=== PATIENT | male | born 1965 | race Caucasian/White ===

== ENCOUNTER 2025-01-15 06:41 | Emergency (ER) | payer OTHER, SELFPAY ==
[2025-01-15] VITALS (12 sets, daily range): BP systolic 88–114; BP diastolic 61–82; PULSE 67–149; RESP 15–20; TEMP 36.6; O2SAT 94–98; BMI 20.7
--- NOTE | 2025-01-15 06:51 | RAD_ITS ---
PROCEDURE: CHEST 1 VIEW (PORTABLE) 01/15/2025 REASON FOR EXAM: CHEST PAIN TECHNIQUE: Frontal view of the chest. COMPARISON: None available FINDINGS: The lungs appear clear. Pulmonary vascularity appears within limits. No pneumothorax or pleural effusion. Left chest single lead AICD. Coronary calcification and/or stent. The cardiac and mediastinal contours appear within limits. The visualized osseous structures appear within limits. RAD/Chest 1 View (Portable) IMPRESSION: No evidence of acute disease. Reading Location: [id number]
[2025-01-15] MEDS: dilTIAZem 25 MG/5 ML Vial 20 MG IV BOLUS (06:55)
[2025-01-15] MEDS: Lorazepam 2 MG/ML WCH Syringe 1 MG IV (06:56)
[2025-01-15] MEDS: 0.9% Normal Saline (500mL Bag) 500 ML 999 ML IV (06:58)
[2025-01-15 07:00] LABS: Absolute Lymphocyte Count 3.88 X10^3/uL (0.83-4.51); Absolute Neutrophil Count 3.7 X10^3/uL (2.0-7.7); Basophil# 0.03 X10^3/uL; Basophil% 0.3 % (0-1); Eosinophil# 0.11 X10^3/uL; Eosinophils% 1.3 % (0-5); Hematocrit 39.2 % (40-54); Hemoglobin 13.6 g/dL (13.0-16.5); Lymphocyte # 3.88 X10^3/ul (0.83-4.51); Lymphocyte % 44.6 % (19-41); Mean Corp Hgb Conc 34.7 g/dL (32-36); Mean Corpuscular Hgb 32.7 pg (27.0-32.0); Mean Corpuscular Volume 94.2 fL (80-94); Mean Platelet Vol. 8.3 fl (6.2-12.0); Monocyte# 0.96 X10^3/uL; NRBC Flagged by Analyzer 0 % (0-5); Neutrophil # 3.68 X10^3/uL (2.7-7.7); Neutrophil % 42.5 % (47-70); Platelet Count 264 K/mm3 (150-450); RBC Distribution Width CV 14.7 % (11.6-14.6); RBC Distribution Width SD 51.2 fl (35.1-43.9); Red Blood Count 4.16 M/mm3 (4.6-6.2); White Blood Count 8.7 K/mm3 (4.4-11.0)
[2025-01-15 07:22] LABS: Anion Gap 14 (5-15); BUN 11 mg/dL (4-19); BUN/Creat Ratio 10.1 RATIO (10-20); Carbon Dioxide 22.4 mmol/L (21.0-32.0); Chloride 100 mmol/L (98-108); Creatinine, Serum 1.07 mg/dL (0.70-1.20); EST Glomerular Filtration Rate 80 (>60); Estimated Creatinine Clearance 63.29 ml/min (50-250); Glucose 108 mg/dL (70-99); Magnesium 2.1 mg/dL (1.5-2.2); Potassium 3.7 mmol/L (3.3-5.1); Sodium Level 137 mmol/L (133-145)
--- NOTE | 2025-01-15 07:33 | EX.ED.DYSGE1 ---
HPI History of Present Illness Chief Complaint: Palpitations Informant: patient and EMS Narrative Narrative: Patient is a 59-year-old male with past medical history of coronary artery disease and cardiomyopathy. He states that his ejection fraction was approximately 25% and roughly 3 weeks ago he had a defibrillator placed at [facility]. He states that he has been doing well and he woke this morning as he normally would. He states he was making coffee around 6 AM and began to feel his heart was doing something funny and then he reports his defibrillator shocked him. He states that he experienced a sensation multiple times. He believes it has been 6-8 times since the initial shock around 6 AM and reports last shock he felt occurred when EMS arrived. He states he has been taking his medications as directed and overall states he was feeling normal prior to the onset of palpitations and the ICD firing. [facility] Medical History Cardiomyopathy Home Medications ?Medication ?Instructions ?Recorded ?Last Taken ?Type apixaban 5 mg tablet (Eliquis) 5 mg PO BID 01/15/25 Unknown History atorvastatin 40 mg tablet 40 mg PO DAILY 01/15/25 Unknown History clopidogrel 75 mg tablet 75 mg PO DAILY 01/15/25 Unknown History dapagliflozin propanediol 10 mg 10 mg PO DAILY 01/15/25 Unknown History tablet (Farxiga) metoprolol succinate 25 mg 25 mg PO DAILY 01/15/25 Unknown History tablet,extended release 24 hr ranolazine 500 mg tablet,extended 500 mg PO BID 01/15/25 Unknown History release,12 hr sacubitril 24 mg-valsartan 26 mg 1 tab PO BID 01/15/25 Unknown History tablet (Entresto) spironolactone 25 mg tablet 25 mg PO DAILY 01/15/25 Unknown History Allergy/AdvReac Type Severity Reaction Status Date / Time No Known Allergies Allergy Verified 01/15/25 06:43 Surgical History (Updated 01/15/25 @ 06:47 by Lisa Louise) History of cardiac defibrillator placement Social History Smoking Status: Current every day smoker tobacco type: cigarettes ROS ROS ED Constitutional Constitutional ED: Denies chills or fever(s) Eyes Eyes: Denies change in vision ENT ENT ED: Denies sore throat Cardiovascular Cardiovascular: Reports palpitations, racing heartbeat and other Details: Positive ICD firing ; Denies chest pain Respiratory/Chest Respiratory/Chest: Denies cough or dyspnea Gastrointestinal Gastrointestinal: Denies abdominal pain, diarrhea, nausea or vomiting Genitourinary Genitourinary ED: Denies dysuria Musculoskeletal Musculoskeletal: Denies myalgias Integumentary Denies rash Neurologic Neurologic: Denies headache(s) Hematologic/Lymphatic Hematologic/Lymphatic: Reports easy bleeding and easy bruising EXAM Physical Exam Const Vital Signs: 01/15/25 06:42 01/15/25 06:42 01/15/25 07:04 Temperature 98 F Temperature Source Temporal Pulse Rate 149 H 86 Respiratory Rate 18 Respiratory Effort Normal Non-Labored Blood Pressure 114/82 H Blood Pressure Mean 92 Pulse Ox 97 Oxygen Delivery Method Room Air Oxygen Flow Rate (L/min) 01/15/25 07:30 01/15/25 08:00 Temperature Temperature Source Pulse Rate 94 86 Respiratory Rate 20 H 18 Respiratory Effort Blood Pressure 95/68 98/61 Blood Pressure Mean 77 73 Pulse Ox 94 96 Oxygen Delivery Method Nasal Cannula Nasal Cannula Oxygen Flow Rate (L/min) 2 2 Positive well nourished and well developed General Appearance ED: well developed; Negative for pallor HEENT HEENT Narrative: Normocephalic atraumatic No tongue or lip swelling no oral lesions no airway edema or compromise Eyes PERRL and EOMs intact bilaterally General Eye ED: Negative for scleral icterus Neck supple and no JVD Neck Narrative: No nuchal rigidity or meningeal signs noted Chest Wall palpation of chest normal Resp normal respiratory effort Resp Narrative: Breath sounds diminished throughout with faint expiratory wheezing consistent with history of smoking but no signs of respiratory distress Cardio Rate: tachycardic and other Other Details: Irregularly irregular rhythm with tachycardic rate GI normal to inspection, nondistended, normoactive bowel sounds, non-tender, non-distended and no masses GI Narrative: No voluntary guarding or rigidity or pulsatile mass Auscultation: normoactive bowel sounds Palpation: soft Extremity normal to inspection Extremity Narrative: No asymmetric edema no pitting edema negative Homans' sign bilaterally Neuro oriented x3, CN's II-XII intact bilaterally and no sensory deficits noted Sensorium / Orientation: alert Motor Exam: strength 5/5 throughout Psych Mood & Affect: anxious Skin no rashes or lesions noted Skin Narrative: Surgical scar to the left anterior chest wall consistent with recent ICD placement that is clean dry and intact without secondary findings to suggest infection General Skin Exam: Negative for jaundice or pallor MDM MDM MDM Narrative Medical decision making narrative: Patient arrived to the ER tachycardic at approximately 150 to 170 bpm. Otherwise vitals are stable. He reported that his ICD had fired multiple times since he awoke around 6 AM and noticed palpitations. This report would indicate that the patient had ventricular tachycardia or ventricular fibrillation requiring defibrillation. There is concern this could be secondary to a displaced or migrated lead versus electrolyte abnormality. X-ray revealed no obvious signs of wire malfunction or fracture. Blood work revealed no clinically significant findings. The patient's EKG in the ER shows changes more consistent with A-fib with RVR and not V. tach or V-fib. Concern for DVT/PE is low as patient is anticoagulated on Eliquis and therefore I do not feel the need for an emergent CTA of the chest. The defibrillator was interrogated and does confirm that he received multiple episodes of defibrillation consistent with his history. With the recent defibrillator placement the case was discussed with news reel cameraman Dr. Kumar at [place]. At this time he recommends continuing a Cardizem drip at 5 mg/h and transfer to their facility for continued evaluation and treatment History & Record Review Discussion w/independent historian: EMS personnel and Patient Lab Data Attestation: I reviewed the patient's lab results. Labs: Laboratory Results - last 24 hr 01/15/25 06:50 WBC 8.7 RBC 4.16 L Hgb 13.6 Hct 39.2 L MCV 94.2 H MCH 32.7 H MCHC 34.7 RDW Std Deviation 51.2 H RDW Coeff of Hever 14.7 H Plt Count 264 MPV 8.3 Immature Gran % (Auto) 0.300 Neut % (Auto) 42.5 L Lymph % (Auto) 44.6 H [place] % (Auto) 11.0 H Eos % (Auto) 1.3 Baso % (Auto) 0.3 Absolute Neuts (auto) 3.7 Absolute Lymphs (auto) 3.88 Nucleated RBC % 0 Sodium 137 Potassium 3.7 Chloride 100 Carbon Dioxide 22.4 Anion Gap 14 BUN 11 Creatinine 1.07 Estim Creat Clear Calc 63.29 Est GFR (MDRD) Non-Af 80 BUN/Creatinine Ratio 10.1 Glucose 108 H Calcium 9.0 Magnesium 2.1 Radiography Diagnostic Testing: Clinical Impression(s) from Imaging Studies Chest X-Ray 01/15/25 06:51 IMPRESSION: No evidence of acute disease. Reading Location: [facility] Chest x-ray as interpreted by the emergency medicine physician reveals no acute infiltrate or pneumothorax or pleural effusion and it shows that the ICD wire is intact and in place Critical Care Time Critical Care Time: Yes Critical care time (excluding procedures): Discussing w/Patient &/or Family/Sheriff Sergeant, Discussing w/Consultants, Arranging Admission or Transfer, Performing Direct Patient Care at Bedside and - (Critical care time of 37 minutes) Discharge Plan Triage Chief Complaint: Palpitations ED Provider: Neil Dalal Dx/Rx/DC Orders Clinical Impression: ICD (implantable cardioverter-defibrillator) discharge, Atrial fibrillation with rapid ventricular response, Current use of intermission coordinator anticoagulation Prescriptions: No Action atorvastatin 40 mg tablet 40 mg PO DAILY clopidogrel 75 mg tablet 75 mg PO DAILY spironolactone 25 mg tablet 25 mg PO DAILY metoprolol succinate 25 mg tablet extended release 24 hr 25 mg PO DAILY ranolazine 500 mg tablet extended release 12 hr 500 mg PO BID Eliquis 5 mg tablet 5 mg PO BID dapagliflozin propanediol [Farxiga] 10 mg tablet 10 mg PO DAILY sacubitril-valsartan [Entresto] 24-26 mg tablet 1 tab PO BID Primary Care Provider: Care Physician,No Primary Referrals: Care Physician,No Primary [Primary Care Provider] - Print Language: Arabic Disposition Disposition: Acute Care Hospital Discharge Location: [facility]
--- NOTE | 2025-01-15 07:55 | EKG12_ITS ---
Test Reason : palp Blood Pressure : */* mmHG Vent. Rate : 156 BPM Atrial Rate : * BPM P-R Int : * ms QRS Dur : 96 ms QT Int : 304 ms P-R-T Axes : * -49 -7 degrees QTcB Int : 489 ms Critical Test Result: High HR Atrial fibrillation with rapid ventricular response Left axis deviation Septal infarct , age undetermined ST & T wave abnormality, consider inferior ischemia Abnormal ECG Confirmed by KRISTOPHER GASPAR, KAMERON ([id number]), food expeditor MARYSOL EDDY ([id number]) on 01/15/2025 1:30:18 PM Referred By: Rodo Confirmed By: KAMERON SUMMERS MD
--- NOTE | 2025-01-15 08:10 | PCA ---
ACCEPTED AT [facility] @ [id number].
[2025-01-15] MEDS: Diltiazem 125 MG in Dextrose 5%-Water (100mL Bag) 100 ML IV (08:26)
--- NOTE | 2025-01-15 09:53 | PCA ---
[facility] CALLED WITH B[facility] @ [address] [place] [address] HIS RIDE WILL BE HERE IN 60- 90 MINS ([id number])
== END 2025-01-15 11:44 | disposition short-term general hospital (02) ==
PROVIDERS: Emergency Provider Emergency Medicine; Visit Provider Emergency Medicine
DX: I48.91 Unspecified atrial fibrillation (principal); Z95.810 Presence of automatic (implantable) cardiac defibrillator; I25.10 Atherosclerotic heart disease of native coronary artery without angina pectoris; F17.210 Nicotine dependence, cigarettes, uncomplicated; Z79.01 Long term (current) use of anticoagulants; Z79.02 Long term (current) use of antithrombotics/antiplatelets; Z79.899 Other long term (current) drug therapy
CPT/HCPCS: 71045; 80048; 83735; 85025; 93005; 93289; 96361; 96365; 96366; 96375; 99285; A4216

== ENCOUNTER 2025-04-28 12:34 | Emergency (ER) | payer OTHER, SELFPAY ==
[2025-04-28 12:35] VITALS: BP 148/89; PULSE 104; RESP 18; TEMP 36.8; O2SAT 100; BMI 23.3
--- NOTE | 2025-04-28 12:50 | EKG12_ITS ---
Test Reason : DEFIB ISSUES Blood Pressure : */* mmHG Vent. Rate : 129 BPM Atrial Rate : * BPM P-R Int : * ms QRS Dur : 110 ms QT Int : 302 ms P-R-T Axes : * -47 89 degrees QTcB Int : 442 ms Critical Test Result: Arrhythmia Atrial fibrillation with rapid ventricular response with premature ventricular or aberrantly conducted complexes Left anterior fascicular block Nonspecific ST and T wave abnormality Abnormal ECG Confirmed by Edwar Armstrong ([id number]), editorial intern MARYSOL EDDY ([id number]) on 04/29/2025 9:38:03 AM Referred By: Confirmed By: Edwar Armstrong
--- NOTE | 2025-04-28 13:11 | ED.RN ---
missed doses of meds yesterday
[2025-04-28 13:15] LABS: Hematocrit 37.5 % (40-54); Hemoglobin 12.6 g/dL (13.0-16.5); Mean Corp Hgb Conc 33.6 g/dL (32-36); Mean Corpuscular Volume 91.0 fL (80-94); Mean Platelet Vol. 9.4 fl (6.2-12.0); Platelet Count 209 K/mm3 (150-450); RBC Distribution Width CV 13.2 % (11.6-14.6); RBC Distribution Width SD 43.7 fl (35.1-43.9); Red Blood Count 4.12 M/mm3 (4.6-6.2); White Blood Count 9.7 K/mm3 (4.4-11.0)
[2025-04-28 13:31] LABS: Anion Gap 10 (5-15); BUN 15 mg/dL (4-19); BUN/Creat Ratio 13.4 RATIO (10-20); Calcium,Total 9.3 mg/dL (7.6-11.0); Carbon Dioxide 25.8 mmol/L (21.0-32.0); Chloride 100 mmol/L (98-108); Estimated Creatinine Clearance 64.66 ml/min (50-250); Glucose 113 mg/dL (70-99); Potassium 4.9 mmol/L (3.3-5.1)
[2025-04-28 13:35] VITALS: PULSE 120
[2025-04-28 13:50] VITALS: BP 139/97; PULSE 127; RESP 18; O2SAT 96
--- NOTE | 2025-04-28 14:57 | EX.ED.DYSGE1 ---
HPI History of Present Illness Chief Complaint: Palpitations Detail of Chief Complaint: [place] anxious and defibrillator fired Informant: patient Onset/Context/Timing Onset: Today (Defibrillator discharged at 1019) Context: Sudden Onset Timing: Intermittent Quality: 1 shock was delivered Location: Patient with a pacemaker AC ID that discharged due to rapid heartbeat Current Severity: Gone Maximum Severity: Mild Worsened by: Per report after interrogation A-fib rate greater than 200 Relieved by: AC ID delivering a shock Associated Symptoms Associated Symptoms: None Narrative Narrative: Patient is a 59-year-old male. He has history of atrial fibrillation. He is on Tikosyn, apixaban, metoprolol, Plavix who presents because his defibrillator delivered a shock. Shock was delivered at 1019. The shock was delivered because he was in A-fib with a rate greater than 200. The defibrillator is set to deliver a shock for rate over 200. Does not discern whether it is a fib versus V. tach. Prior similar symptoms: No Recent Illness/Hospitalization: Yes [facility] Medical History (Updated 04/28/25 @ 16:[address] Kaleb Fisher MD) Current use of intermediate accountant anticoagulation Cardiomyopathy Home Medications ?Medication ?Instructions ?Recorded ?Last Taken ?Type apixaban 5 mg tablet (Eliquis) 5 mg PO BID 01/15/25 Unknown History atorvastatin 40 mg tablet 40 mg PO DAILY 01/15/25 Unknown History clopidogrel 75 mg tablet 75 mg PO DAILY 01/15/25 Unknown History dapagliflozin propanediol 10 mg 10 mg PO DAILY 01/15/25 Unknown History tablet (Farxiga) metoprolol succinate 25 mg 25 mg PO DAILY 01/15/25 Unknown History tablet,extended release 24 hr ranolazine 500 mg tablet,extended 500 mg PO BID 01/15/25 Unknown History release,12 hr sacubitril 24 mg-valsartan 26 mg 1 tab PO BID 01/15/25 Unknown History tablet (Entresto) spironolactone 25 mg tablet 25 mg PO DAILY 01/15/25 Unknown History Allergy/AdvReac Type Severity Reaction Status Date / Time No Known Allergies Allergy Verified 04/28/25 12:37 Surgical History History of cardiac defibrillator placement Social History Smoking Status: Current every day smoker tobacco type: cigarettes ROS ROS ED Constitutional Constitutional ED: Denies chills, fever(s), subjective or sweats Eyes Eyes: Denies blurry vision, change in vision or diplopia ENT ENT ED: Denies ear pain or rhinorrhea Cardiovascular Cardiovascular: Reports palpitations and racing heartbeat; Denies chest pain, orthopnea or paroxysmal nocturnal dyspnea Respiratory/Chest Respiratory/Chest: Denies cough, dyspnea, dyspnea on exertion, orthopnea or paroxysmal nocturnal dyspnea Gastrointestinal Gastrointestinal: Denies abdominal pain, nausea or vomiting Musculoskeletal Musculoskeletal: Denies arthralgias or myalgias Integumentary Denies rash Hematologic/Lymphatic Hematologic/Lymphatic: Reports easy bruising; Denies anemia, easy bleeding or lymphadenopathy EXAM Physical Exam Const Vital Signs: 04/28/25 12:35 04/28/25 13:35 04/28/25 13:50 Temperature 98.2 F Temperature Source Oral Pulse Rate 104 H 120 H 127 H Respiratory Rate 18 18 Blood Pressure 148/89 H 139/97 H Blood Pressure Mean 108 111 Pulse Ox 100 96 Oxygen Delivery Method Room Air Room Air 04/28/25 15:05 04/28/25 15:54 Temperature Temperature Source Pulse Rate 105 H 61 Respiratory Rate 12 12 Blood Pressure 113/91 H 112/74 Blood Pressure Mean 98 86 Pulse Ox 96 96 Oxygen Delivery Method Room Air Room Air Positive well nourished and well developed General Appearance ED: well developed and NAD; Negative for pallor HEENT Reports moist mucous membranes HEENT Narrative: Head is normocephalic atraumatic. Eyes PERRL and EOMs intact bilaterally General Eye ED: Negative for pale conjunctiva or scleral icterus Neck no lymphadenopathy, supple and no JVD Chest Wall inspection of chest normal and palpation of chest normal Resp normal respiratory effort and clear to auscultation bilaterally Cardio no murmurs Rate: tachycardic Rhythm: abnormal rhythm irregularly irregular GI normal to inspection, nondistended, normoactive bowel sounds, non-tender, non-distended and no masses; Negative for hepatosplenomegaly Back/Spine no CVA tenderness Extremity normal to inspection General Extremety ED: Negative for edema or tenderness General Extremity: Negative for edema Neuro oriented x3 and CN's II-XII intact bilaterally Sensorium / Orientation: alert Psych mental status grossly normal Skin no rashes or lesions noted, no wounds and skin turgor normal General Skin Exam: elasticity normal; Negative for jaundice or pallor MDM MDM MDM Narrative Medical decision making narrative: Patient presents because his defibrillator shocked fired. After interrogation was determined the patient had A-fib with rate greater than 200. The defibrillator set to not discern between A-fib or V. tach and will deliver shock for rate greater than 200 which patient had at 1019. Will assess his electrolytes. He was assessed and his heart rate went up to 150. He was treated with metoprolol. I did speak with manufacturer's service representative for [employer] who walked me through the 50 page document. A copy was sent to his [employer] developer office. Lab Data Attestation: I reviewed the patient's lab results. Lab results narrative: CBC is unremarkable. He has a mild anemia. Electrolytes are unremarkable. Glucose slightly to 113 with a normal CO2 anion gap. Labs: Laboratory Results - last 24 hr 04/28/25 13:00 WBC 9.7 RBC 4.12 L Hgb 12.6 L Hct 37.5 L MCV 91.0 MCH 30.6 MCHC 33.6 RDW Std Deviation 43.7 RDW Coeff of Hever 13.2 Plt Count 209 MPV 9.4 Sodium 136 Potassium 4.9 Chloride 100 Carbon Dioxide 25.8 Anion Gap 10 BUN 15 Creatinine 1.15 Estim Creat Clear Calc 64.66 Est GFR (MDRD) Non-Af 73 BUN/Creatinine Ratio 13.4 Glucose 113 H Calcium 9.3 EKG Initial EKG: Attestation: I personally reviewed and interpreted this EKG as follows: Interpretation: Atrial Fibrillation (Atrial fibrillation rate of 129. QRS duration 110 ms. QT duration 102 seconds. [place] to the left. There is a left anterior fascicular block. There are apparent beats versus premature ventricular beats noted.) Management Discussion w/another healthcare provider: Other (Spoke with Dr. Mosqueda's escrow assistant Bisi. Patient has an appointment to be seen tomorrow at 2:30 PM.) Treatment and Re-Evaluation :: Patient converted to sinus rhythm. He is either now in a sinus rhythm or paced rhythm. Will discharge to home. He understands he has an appointment tomorrow with his oracle soa developer. Discharge Plan Triage Chief Complaint: Palpitations ED Provider: Kaleb Fisher Dx/Rx/DC Orders Clinical Impression: Atrial fibrillation with RVR, AICD discharge, Anticoagulant long-term use Instructions: ICD Prescriptions: No Action atorvastatin 40 mg tablet 40 mg PO DAILY clopidogrel 75 mg tablet 75 mg PO DAILY spironolactone 25 mg tablet 25 mg PO DAILY metoprolol succinate 25 mg tablet extended release 24 hr 25 mg PO DAILY ranolazine 500 mg tablet extended release 12 hr 500 mg PO BID Eliquis 5 mg tablet 5 mg PO BID dapagliflozin propanediol [Farxiga] 10 mg tablet 10 mg PO DAILY sacubitril-valsartan [Entresto] 24-26 mg tablet 1 tab PO BID Primary Care Provider: Care Physician,No Primary Referrals: Care Physician,No Primary [Primary Care Provider] - Activity Restrictions/Additional Instructions: You have an appointment with Dr. Mosqueda tomorrow at 2:30 PM Print Language: Lithuanian Disposition Disposition: Home, Self Care
[2025-04-28 15:05] VITALS: BP 113/91; PULSE 105; RESP 12; O2SAT 96
[2025-04-28 15:54] VITALS: BP 112/74; PULSE 61; RESP 12; O2SAT 96
[2025-04-28 16:19] VITALS: BP 136/76; PULSE 102; RESP 18; TEMP 37.2; O2SAT 99
== END 2025-04-28 16:20 | disposition home or self-care (01) ==
PROVIDERS: Emergency Provider Emergency Medicine; Visit Provider Emergency Medicine
DX: R00.2 Palpitations (principal); I48.91 Unspecified atrial fibrillation; F17.210 Nicotine dependence, cigarettes, uncomplicated; Z79.01 Long term (current) use of anticoagulants; Z95.810 Presence of automatic (implantable) cardiac defibrillator; Z95.0 Presence of cardiac pacemaker; Z79.899 Other long term (current) drug therapy; Z79.02 Long term (current) use of antithrombotics/antiplatelets
CPT/HCPCS: 80048; 85027; 93005; 93288; 96374; 99284; A4216